=== PATIENT | male | born 1965 | race Caucasian/White ===

== ENCOUNTER 2019-04-15 08:38 | Emergency (ER) | payer BC ==
[2019-04-15 08:42] VITALS: TEMP 98.8; BMI 37.5
[2019-04-15] MEDS ORDERED: METOCLOPRAMIDE HCL INJECTION 10 MG/2 ML VIAL IVPUSH ONE ×2 (09:49→16:15)
[2019-04-15] MEDS ORDERED: SODIUM CHLORIDE 1,000 ML IV ONE (09:49)
[2019-04-15] MEDS ORDERED: HYDROmorphone HCL CARPU-JECT 2 MG/1 ML DISP.SYRIN IVPUSH ONE ×3 (09:49→13:04)
--- NOTE | 2019-04-15 09:52 | PDOC ---
History of Present Illness - General Chief Complaint: Pain, Acute Stated Complaint: ABD PAIN Time Seen by Provider: 04/15/19 09:38 History Source: Patient Exam Limitations: No Limitations - History of Present Illness Travel History: No Initial Comments: 04/15/19 09:49 54y M no knonw pmhx presents with complaint of L flank pain. Pt notes pain started diffusely in the abdomen on monday, gradually got worse, went to [facility] an dwas worked up, had a CT with IV contrast that was neg and was discharged. pt notes the pain started radiating to the L flank while he was at the hospital. Pt was dc with some abx and percocet. pt notes the pain is constant, but is severe intermittently, associated with nausea without associated vomiting, fever/chills, dysuria, diarrhea, cp, sob, numbness/tingling /weakness. Pt notes some 'muddy colored urine' yesterday but has cleared up today. no hx of kidney stones. denies any pain in the testicles or penis. no penile discharge Past History - Past Medical History Allergies/Adverse Reactions: Allergies Allergy/AdvReac Type Severity Reaction Status Date / Time No Known Allergies Allergy Verified 04/15/19 08:42 Home Medications: Ambulatory Orders Cefdinir [Omnicef -] 300 mg PO BID 04/15/19 Ondansetron HCl [Zofran] 4 mg PO ASDIR 04/15/19 Tamsulosin HCl [Flomax] 0.4 mg PO DAILY #7 capsule 04/15/19 Tramadol HCl 50 mg PO QID PRN #12 tablet MDD 4 04/15/19 Anemia: No Asthma: No Cancer: No Cardiac Disorders: No CVA: No COPD: No CHF: No DVT: No Dementia: No Diabetes: No Dialysis: No GI Disorders: Yes ( see history of present illness) Disorders: No HTN: No Hypercholesterolemia: No Kidney Stones: No Liver Disease: No Psychiatric Problems: No Seizures: No Thyroid Disease: No Lung CA: No - Surgical History Abdominal Surgery: Yes ( umbilical hernia repair) Appendectomy: Yes Cardiac Surgery: No Cholecystectomy: No Gastric Stapling: No GI Surgery: No Lung Surgery: No Neurologic Surgery: No Orthopedic Surgery: No - Suicide/Smoking/Psychosocial Hx Smoking Status: Yes Smoking History: Current every day smoker Years of Tobacco Use: 30 Have you smoked in the past 12 months: Yes Number of Cigarettes Smoked Daily: 20 Information on smoking cessation initiated: Yes 'Breaking Loose' booklet given: 06/13/12 Hx Alcohol Use: No Drug/Substance Use Hx: No Substance Use Type: Alcohol Hx Substance Use Treatment: No Review of Systems - Review of Systems Able to Perform ROS?: Yes Comments:: 04/15/19 09:51 Constitutional - no reported Fever, Chills, HEENT: no reported vision changes, sore throat Respiratory: no reported cough, sob, hemoptysis Cardiac: no reported chest pain, palpitations, light headedness, leg swelling Abd/GI: + nausea, flank pain no reported abd pain, vomiting, blood per rectum, melena, diarrhea : +hematuria no reported dysuria, frequency, discharge Musculskelatal - no reported back pain, joint swelling skin - no reported bruising, erythema, rash neurological: no reported headache, numbness, focal weakness, tingling, ataxia, hematologic: no reported easy bruising, easy bleeding *Physical Exam - Vital Signs Last Vital Signs Temp Pulse Resp BP Pulse Ox 98.8 F 85 19 181/96 H 97 04/15/19 08:40 04/15/19 08:40 04/15/19 08:40 04/15/19 08:40 04/15/19 08:40 - Physical Exam Comments: 04/15/19 09:52 GENERAL: The patient is awake, alert, and fully oriented, Nontoxic - in no acute distress. HEAD: Normocephalic, atraumatic. EYES: extraocular movements intact, sclera anicteric, conjunctiva clear. ENT: Normal voice, Moist mucous membranes. NECK: Normal range of motion, supple LUNGS: Breath sounds equal, clear to auscultation bilaterally. No wheezes, no rhonchi, no rales. HEART: Regular rate and rhythm, normal S1 and S2 without murmur, rub or gallop. ABDOMEN: mild LLQ ttp, mild L CVA tenderness, no rebgound/guarding EXTREMITIES: Normal range of motion, no edema. NEUROLOGICAL: No facial assymetry, Normal speech, PSYCH: Normal mood, normal affect. SKIN: Warm, Dry, normal turgor, ED Treatment Course - LABORATORY CBC & Chemistry Diagram: 04/15/19 10:30 04/15/19 10:30 Medical Decision Making - Medical Decision Making 04/15/19 09:52 suspect kidney stones based on presentation will obtain urine, labs will obtain CT w/o contrast 04/15/19 13:09 ct reviewed noted for exoptic right renal lesion = will obtain formal kidney US L renal pelvis contrast enhancing possible retrograde filling of L kidney vs excretion of IV contrast. ther eis some stranding around the left ureter - ddx - utheritis vs infiltrative process - will obtain US of kidneys and dw urology pt still in significnt pain. will gvie anothe rdose of dilaudid 04/15/19 16:17 pts pain is controlled currently but feeling nauseus, paige give reglan will discuss with urology, if pain controlled, and able to toelrate oral intake will consider outpatiet management with o/p uro fu 04/15/19 17:18 case was discussed with Dr. Connor the patient's pain is controlled recommend follow-up with him tomorrow as an outpatient. patient is feeling improved on reassessment we'll start the patient on Flomax for presumptive kidney stone. i had a extensive discussion with the patient's family regarding his pain - consider possible kdiney stone obscured by contrast, consider possible constipation return precautions were discussed I discussed the physical exam findings, ancillary test results and final diagnoses with the patient. I answered all of the patient's questions. The patient was satisfied with the care received and felt comfortable with the discharge plan and treatment plan. The patient will call their primary care physician within 24 hours to arrange follow-up and will return to the Emergency Department with any new, persistent or worsening symptoms. *DC/Admit/Observation/Transfer Diagnosis at time of Disposition: Left flank pain - Discharge Dispostion Disposition: HOME Condition at time of disposition: Improved Decision to Admit order: No - Referrals Referrals: Brady Brambila MD [Staff Physician] - - Patient Instructions Printed Discharge Instructions: DI for Abdominal Pain-Adult Additional Instructions: Return to the emergency department immediately with ANY new, persistent or worsening symptoms. The cause of your abdominal pain is not absolutely clear. It may be attribuated to a kidney stone obscured by the contrast or may be related to constipation. Therw as also a small cyst on your kidney - follow this up with your primray care doctor. A copy of your ultrasound and CT results are included. You MUST call and follow up with your primary care doctor and dr Akash Aguila tomorrow for further evaluation of your symptoms. Results were discussed with you. Please make sure your doctor reviews the results of your emergency evaluation. Your Emergency Department visit is not complete without a follow up with your doctor. Print Language: FILIPINO - Post Discharge Activity
[2019-04-15] MEDS ORDERED: KETOROLAC TROMETHAMINE 30 MG/1 ML VIAL IVPUSH ONE (09:53)
[2019-04-15] MEDS ORDERED: METOCLOPRAMIDE HCL INJECTION 10 MG/2 ML VIAL ONE ×2 (10:28→16:31)
[2019-04-15] MEDS ORDERED: KETOROLAC TROMETHAMINE 30 MG/1 ML VIAL ONE (10:29)
[2019-04-15] MEDS ORDERED: HYDROmorphone HCl 2 MG/ML VIAL ONE ×2 (11:19→14:01)
[2019-04-15 11:26] LABS: BASO % 0.6 % (0-2.0); EOS % 0.5 % (0-4.5); HEMATOCRIT 42.8 % (35.4-49); LYMPH % 17.8 % (8-40); MCH 31.5 pg (25.7-33.7); MCHC 34.9 g/dl (32.0-35.9); MEAN CELL VOLUME 90.3 fl (80-96); MEAN PLT VOLUME 8.2 fl (7.5-11.1); MONO % 7.1 % (3.8-10.2); PLATELET COUNT 238 K/MM3 (134-434); RBC 4.74 M/mm3 (4.00-5.60); RDW 12.8 % (11.9-15.9); WHITE BLOOD COUNT 13.8 K/mm3 (4.0-10.0)
[2019-04-15 11:33] LABS: EPI CELLS 0.2 /HPF (0-5/HPF); HYALINE CASTS 2 /lpf (0-8); PH,URINE 5.5 (5.0-8.0); URINE APPEARANCE CLOUDY; URINE BACTERIA 0.5 /hpf (NEGATIVE); URINE BILIRUBIN NEGATIVE (NEGATIVE); URINE COLOR YELLOW; URINE GLUCOSE (UA) 3+ (NEGATIVE); URINE KETONE TRACE (NEGATIVE); URINE LEUK ESTERASE NEGATIVE (NEGATIVE); URINE NITRITE NEGATIVE (NEGATIVE); URINE PROTEIN NEGATIVE (NEGATIVE); URINE RBC 19 /hpf (0-4); URINE UROBILINOGEN 0.2 mg/dL (0.2-1.0); URINE WBC 2 /hpf (0-5)
[2019-04-15 12:29] LABS: ALBUMIN 3.8 g/dl (3.4-5.0); BLOOD UREA NITROGEN 14.7 mg/dL (7-18); CALCIUM 8.9 mg/dL (8.5-10.1); CREATININE 1.5 mg/dL (0.55-1.3); TOT PROT 7.4 g/dl (6.4-8.2)
[2019-04-15 18:05] VITALS: BP 121/80; PULSE 83
== END 2019-04-15 17:55 | disposition home or self-care (01) ==
LOC: JER 08:38
PROC: 3E033NZ Introduction of Analgesics, Hypnotics, Sedatives into Peripheral Vein, Percutaneous Approach (ICD-10-PCS; principal; 2019-04-15)
PROC: 3E0333Z Introduction of Anti-inflammatory into Peripheral Vein, Percutaneous Approach (ICD-10-PCS; 2019-04-15)
PROC: 3E033GC Introduction of Other Therapeutic Substance into Peripheral Vein, Percutaneous Approach (ICD-10-PCS; 2019-04-15)
PROC: 3E0337Z Introduction of Electrolytic and Water Balance Substance into Peripheral Vein, Percutaneous Approach (ICD-10-PCS; 2019-04-15)
DX: R10.32 Left lower quadrant pain (principal); F17.210 Nicotine dependence, cigarettes, uncomplicated
CPT/HCPCS: 36415; 74176-TC; 76775-TC; 80053; 81003; 83690; 85025; 87086; 99283-25; J7030

== ENCOUNTER 2019-04-16 13:28 | Day surgery (SDC) | payer BC ==
[2019-04-16 13:48] VITALS: BMI 37.5
[2019-04-16] MEDS ORDERED: SODIUM CHLORIDE 1,000 ML IV STA (14:52)
[2019-04-16] MEDS ORDERED: ONDANSETRON 4 MG/2 ML VIAL IVPUSH ONE (14:52)
[2019-04-16] MEDS ORDERED: HYDROmorphone HCL CARPU-JECT 2 MG/1 ML DISP.SYRIN IVPUSH ONE (14:52)
--- NOTE | 2019-04-16 14:57 | PDOC ---
History of Present Illness - General Chief Complaint: Pain, Acute Stated Complaint: LT LOWER ABD PAIN Time Seen by Provider: 04/16/19 14:35 History Source: Patient Exam Limitations: No Limitations Past History - Travel Traveled outside of the country in the last 30 days: No Close contact w/someone who was outside of country & ill: No - Past Medical History Allergies/Adverse Reactions: Allergies Allergy/AdvReac Type Severity Reaction Status Date / Time No Known Allergies Allergy Verified 04/16/19 13:46 Home Medications: Ambulatory Orders Cefdinir [Omnicef -] 300 mg PO BID 04/15/19 Ondansetron HCl [Zofran] 4 mg PO ASDIR 04/15/19 Tamsulosin HCl [Flomax] 0.4 mg PO DAILY #7 capsule 04/15/19 Tramadol HCl 50 mg PO QID PRN #12 tablet MDD 4 04/15/19 Anemia: No Asthma: No Cancer: No Cardiac Disorders: No CVA: No COPD: No CHF: No DVT: No Dementia: No Diabetes: No Dialysis: No GI Disorders: Yes ( see history of present illness) Disorders: No HTN: No Hypercholesterolemia: No Kidney Stones: No Liver Disease: No Psychiatric Problems: No Seizures: No Thyroid Disease: No Lung CA: No - Surgical History Abdominal Surgery: Yes ( umbilical hernia repair) Appendectomy: Yes Cardiac Surgery: No Cholecystectomy: No Gastric Stapling: No GI Surgery: No Lung Surgery: No Neurologic Surgery: No Orthopedic Surgery: No - Suicide/Smoking/Psychosocial Hx Smoking Status: Yes Smoking History: Current every day smoker Years of Tobacco Use: 30 Have you smoked in the past 12 months: Yes Number of Cigarettes Smoked Daily: 20 Information on smoking cessation initiated: No 'Breaking Loose' booklet given: 06/13/12 Hx Alcohol Use: No Drug/Substance Use Hx: No Substance Use Type: Alcohol Hx Substance Use Treatment: No Review of Systems - Review of Systems Able to Perform ROS?: Yes Comments:: 04/16/19 14:51 CONSTITUTIONAL: Absent: fever, chills, diaphoresis, generalized weakness, malaise, loss of appetite HEENT: Absent: rhinorrhea, nasal congestion, throat pain, throat swelling, difficulty swallowing, mouth swelling, ear pain, eye pain, visual Changes CARDIOVASCULAR: Absent: chest pain, loss of consciousness, palpitations, irregular heart rate, peripheral edema RESPIRATORY: Absent: cough, shortness of breath, dyspnea with exertion, orthopnea, wheezing, stridor, hemoptysis GASTROINTESTINAL: Absent: abdominal pain, abdominal distension, nausea, vomiting, diarrhea, constipation, melena, hematochezia GENITOURINARY: Present: L sided flank pain Absent: dysuria, frequency, urgency, hesitancy, hematuria, flank pain, genital pain MUSCULOSKELETAL: Absent: myalgia, arthralgia, joint swelling SKIN: Absent: rash, itching, pallor HEMATOLOGIC/IMMUNOLOGIC: Absent: easy bleeding, easy bruising, lymphadenopathy, frequent infections ENDOCRINE: Absent: unexplained weight gain, unexplained weight loss, heat intolerance, cold intolerance NEUROLOGIC: Absent: headache, focal weakness or paresthesias, dizziness, unsteady gait, seizure, mental status changes, bladder or bowel incontinence PSYCHIATRIC: Absent: anxiety, depression, suicidal or homicidal ideation, hallucinations. Is the patient limited [place] Islander proficient: No *Physical Exam - Vital Signs Last Vital Signs Temp Pulse Resp BP Pulse Ox 98.5 F 77 15 154/99 100 04/16/19 13:46 04/16/19 13:46 04/16/19 13:46 04/16/19 13:46 04/16/19 13:46 - Physical Exam Comments: 04/16/19 14:53 GENERAL: Well developed, well nourished. Awake and alert. No acute distress. HEENT: Normocephalic, atraumatic. PERRLA, EOMI. No conjunctival pallor. Sclera are non- icteric. Moist mucous membranes. Oropharynx is clear. NECK: Supple. Full ROM. No JVD. Carotid pulses 2+ and symmetric, without bruits. No thyromegaly. No lymphadenopathy. CARDIOVASCULAR: Regular rate and rhythm. No murmurs, rubs, or gallops. Distal pulses are 2+ and symmetric. PULMONARY: No evidence of respiratory distress. Lungs clear to auscultation bilaterally. No wheezing, rales or rhonchi. ABDOMINAL: L sided abdominal discomfort. Soft. Non-distended. No rebound or guarding. No organomegaly. Normoactive bowel sounds. MUSCULOSKELETAL Normal range of motion at all joints. No bony deformities or tenderness. (+) L sided CVA tenderness. EXTREMITIES: No cyanosis. No clubbing. No edema. No calf tenderness. SKIN: Warm and dry. Normal capillary refill. No rashes. No jaundice. NEUROLOGICAL: Alert, awake, appropriate. Cranial nerves 2-12 intact. No deficits to light touch and temperature in face, upper extremities and lower extremities. No motor deficits in the in face, upper extremities and lower extremities. Normoreflexic in the upper and lower extremities. Normal speech. Toes are down- going bilaterally. Gait is normal without ataxia. PSYCHIATRIC: Cooperative. Good eye contact. Appropriate mood and affect. ED Treatment Course - LABORATORY CBC & Chemistry Diagram: 04/16/19 16:00 04/16/19 16:00 Medical Decision Making - Medical Decision Making 04/16/19 14:57 The patient is a 54-year-old male who presents to the ER today with left-sided flank pain. The patient states the symptoms of the going on since . He has been evaluated both [facility] and our facility for similar pain. He had a CAT scan yesterday that was negative for stones however he continues to have the pain. He was referred to Dr. Akash Aguila as an outpatient. He states that he saw Dr. Garcia and was told to come back to the ER with Dr. Vasquez is going to bring him to the OR for procedure. He states he still has the pain on the left side and rates it a 10 out of 10. He is not taking any medication at home for the pain. Admits to associated dysuria. Denies fevers, chills, chest pain, shortness of breath, vomiting. A/P: Left-sided flank pain On exam patient with CVA tenderness to the left. Patient appears restless and walking around exam room. Images from yesterday were reviewed. Preop labs ordered Dilaudid and Zofran ordered Call placed to Dr. Akash Aguila office Reevaluate 04/16/19 17:24 OR here to take pt Dr. Lorie Aguila requesting hospital admission PCP Dr. Dandre Benitez --> hospitalists *DC/Admit/Observation/Transfer Diagnosis at time of Disposition: Left flank pain - Discharge Dispostion Condition at time of disposition: Stable Decision to Admit order: Yes - Referrals - Patient Instructions - Post Discharge Activity
[2019-04-16] MEDS ORDERED: HYDROmorphone HCl 2 MG/ML VIAL ONE (16:01)
[2019-04-16] MEDS ORDERED: EPHEDRINE SULFATE/0.9% NACL/PF 50 MG/10 ML SYRINGE NR ONE (16:04)
[2019-04-16] MEDS ORDERED: SUCCINYLCHOLINE CHLORIDE 200 MG/10 ML SYRINGE ONE (16:04)
[2019-04-16] MEDS ORDERED: PROPOFOL 20 ML ONE ×2 (16:04)
[2019-04-16] MEDS ORDERED: ONDANSETRON 4 MG/2 ML VIAL ONE (16:05)
[2019-04-16 16:22] LABS: EOS % 1.5 % (0-4.5); HEMATOCRIT 43.1 % (35.4-49); HEMOGLOBIN 14.5 GM/dL (11.7-16.9); LYMPH % 25.1 % (8-40); MCH 30.7 pg (25.7-33.7); MCHC 33.7 g/dl (32.0-35.9); MEAN CELL VOLUME 91.2 fl (80-96); MEAN PLT VOLUME 7.2 fl (7.5-11.1); MONO % 7.9 % (3.8-10.2); NEUT % 64.5 % (42.8-82.8); PLATELET COUNT 244 K/MM3 (134-434); RBC 4.72 M/mm3 (4.00-5.60); RDW 12.8 % (11.9-15.9)
[2019-04-16 16:42] LABS: INR 1.02 (0.83-1.09)
[2019-04-16] MEDS ORDERED: oxyCODONE HCL 5 MG TABLET PO PRN ×2 (16:45)
[2019-04-16] MEDS ORDERED: LACTATED RINGERS SOLUTION 1,000 ML IV SCH (16:45)
[2019-04-16 16:47] LABS: BILIRUBIN,TOTAL 0.6 mg/dL (0.2-1); BLOOD UREA NITROGEN 14.4 mg/dL (7-18); CALCIUM 8.9 mg/dL (8.5-10.1); CREATININE 1.4 mg/dL (0.55-1.3); POTASSIUM 4.1 mmol/L (3.5-5.1); TOT PROT 6.9 g/dl (6.4-8.2)
[2019-04-16 17:38] LABS: EPI CELLS 0.3 /HPF (0-5/HPF); HYALINE CASTS 1 /lpf (0-8); PH,URINE 5.5 (5.0-8.0); URINE APPEARANCE CLEAR; URINE BILIRUBIN NEGATIVE (NEGATIVE); URINE COLOR YELLOW; URINE GLUCOSE (UA) 2+ (NEGATIVE); URINE KETONE TRACE (NEGATIVE); URINE LEUK ESTERASE NEGATIVE (NEGATIVE); URINE NITRITE NEGATIVE (NEGATIVE); URINE PROTEIN TRACE (NEGATIVE); URINE RBC 123 /hpf (0-4); URINE UROBILINOGEN 0.2 mg/dL (0.2-1.0); URINE WBC 1 /hpf (0-5)
[2019-04-16] MEDS ORDERED: KETOROLAC TROMETHAMINE 30 MG/1 ML VIAL ONE (18:05)
[2019-04-16] MEDS ORDERED: DEXAMETHASONE SOD PHOSPHATE 4 MG/1 ML VIAL ONE (18:05)
[2019-04-16] MEDS ORDERED: LIDOCAINE HCL/PF 2% SDV 5ML VIAL ONE (18:06)
[2019-04-16] MEDS ORDERED: GLYCOPYRROLATE 0.2 MG/1 ML VIAL ONE (18:36)
[2019-04-16] MEDS ORDERED: ACETAMINOPHEN 1000 MG/100 ML VIAL (NON FORMULARY) IVPB ONE (18:55)
--- NOTE | 2019-04-16 18:58 | OP ---
Operative Note - Note: Operative Date: 04/16/19 Pre-Operative Diagnosis: left renal colic/gross hematuria Operation: cystoscopy/left retrograde pyelogram/left ureteroscopic laser lithotripsy/left ureteroscopic stone basketing/left ureteral stent placement Findings: stone fragments Post-Operative Diagnosis: Other (left ureteral stone 6-8 mm with proximal hydronephrosis) Surgeon: Brady Brambila Anesthesia: General Specimens Removed: ureteral stones Drains & Tubes with Location: 04/01 left ureteral stent
[2019-04-16 20:24] VITALS: BP 156/81; PULSE 82; TEMP 98
--- NOTE | 2019-04-16 21:38 | OP ---
DATE OF OPERATION: 04/16/2019 PREOPERATIVE DIAGNOSIS: Left renal colic and gross hematuria. POSTOPERATIVE DIAGNOSIS: Left ureteral stone with hydronephrosis. PROCEDURES: Cystoscopy, left retrograde pyelogram, left ureteroscopic laser lithotripsy, and left ureteroscopic stone basketing, and left ureteral stent placement. SURGEON: Jeanne Wilson MD ANESTHESIA: General. DESCRIPTION OF PROCEDURE: The patient presented to the office today with severe left colic. The patient had 2 CAT scans performed within 24 hours at different institutions, which showed no significant hydronephrosis or stones. The patient was noted at the office to have severe left colic with costovertebral angle tenderness that measured roughly a 7/10-8/10. The patient, in addition, was noted to have significant microscopic hematuria. The patient was scheduled for a left retrograde pyelogram due to the suspiciousness of the symptoms. The patient understands all risks and benefits to the procedure. The patient was brought in the operating room, placed in a supine position on the operating room table. Anesthesia and preoperative antibiotics were administered. The patient was then placed in a dorsal lithotomy position and prepped and draped in the usual sterile manner. Cystoscopy was performed. No evidence of neoplasm within the bladder is noted. There are no stones in the bladder. At this point, a retrograde pyelogram was performed, which showed a left hydronephrosis with multiple filling defects within the ureter. At this point, a wire was passed into the kidney, and ureteroscopy was performed. A mid-ureteral 6- to 8-mm stone was found. Laser lithotripsy was performed to reduce the stone to manageable fragments. Once the lithotripsy was complete, fragments of the stone were basketed under direct visualization via the ureteroscope and removed and sent for pathologic evaluation. There were no complications noted. A 6-[place] 24-cm stent was left in the left kidney at the end of the case utilizing the Seldinger technique. No complications were noted. The disposition of the patient was to recovery room. JEANNE WILSON M.D. [id number]
--- NOTE | 2019-04-17 08:31 | EKG ---
Test Reason : Blood Pressure : / mmHG Vent. Rate : 079 BPM Atrial Rate : 079 BPM P-R Int : 130 ms QRS Dur : 090 ms QT Int : 380 ms P-R-T Axes : 068 054 031 degrees QTc Int : 435 ms NORMAL SINUS RHYTHM NORMAL ECG WHEN COMPARED WITH ECG OF 13-JUN-2012 13:26, NO SIGNIFICANT CHANGE WAS FOUND Confirmed by DIEGO DUARTE MD ([id number]) on 04/17/2019 8:30:41 AM Referred By: Confirmed By:DIEGO DUARTE MD
--- NOTE | 2019-04-18 17:25 | PATH ---
Surgical Pathology Report Patient Name: NAJMA AGUILAR Med. Rec. #: [id number] /Age/Gender: 1965 (Age: 54) / M Account: [id number] Location: AMBULATORY SURG Taken: 04/16/2019 Received: 04/17/2019 Reported: 04/18/2019 Physicians: Brady Brambila Specimen(s) Received LEFT URETERAL STONES Clinical History Left ureteral stones Final Diagnosis URETERAL STONES, LEFT, STONE BASKETING: URETEROLITHIASIS. MACROSCOPIC DIAGNOSIS. Electronically Signed Harika Clay M.D. Gross Description Received fresh labeled "left ureteral stones," are 3 villanueva, irregular calculi ranging from 0.1-0.3 cm in greatest dimension. The specimen is sent for chemical analysis. /04/17/201904/17/2019
[2019-04-24 12:13] LABS: URIC ACID 100 % (.); WEIGHT 6.3 mg (.)
== END 2019-04-16 20:20 | disposition home or self-care (01) ==
LOC: JER 13:28 → JASUSAT 17:37
PROVIDERS: ATTEND Internal Medicine
PROC: BT1FYZZ Fluoroscopy of Left Kidney, Ureter and Bladder using Other Contrast (ICD-10-PCS; 2019-04-16)
PROC: 0TF78ZZ Fragmentation in Left Ureter, Via Natural or Artificial Opening Endoscopic (ICD-10-PCS; principal; 2019-04-16 17:30)
PROC: 0T778DZ Dilation of Left Ureter with Intraluminal Device, Via Natural or Artificial Opening Endoscopic (ICD-10-PCS; 2019-04-16 17:30)
DX: N20.1 Calculus of ureter (principal); R31.0 Gross hematuria; N13.30 Unspecified hydronephrosis
CPT/HCPCS: 36415; 76000-TC-FY; 80053; 81003; 82360; 85025; 85610; 86850; 86900; 86901; 87086; 88300-TC; 93005; 93010; 94760; 99283-25; J7030